=== PATIENT | male | born 1980 | race African-American/Black ===

== ENCOUNTER 2019-07-04 01:37 | Inpatient (IN) | payer MEDICAID ==
[~2019-07-04] VITALS: Ht 175.3 cm; Wt 86.2 kg
--- NOTE | 2019-07-04 01:58 | Emergency Room Report ---
History of Present Illness General Chief Complaint: Lower Extremity Injury Source: Patient Present Illness HPI Disclaimer: Please note that this report is being documented using DRAGON technology. This can lead to erroneous entry secondary to incorrect interpretation by the dictating instrument. HPI: 39-year-old male with history of DVTs presents for evaluation of leg pain and swelling. 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 He used to travel back and forth from [place] to [place] where his physicians were however he has lost touch with him is not refilled any medications. He cannot recall the anticoagulant he was taking in the past. Left leg began to swell a few months ago however became acutely painful and more swollen yesterday. He also noted a blistering over the medial aspect just above the medial malleolus that drained some clear fluid. Notes worsening edema. Pain with ambulation. Denies fevers, chills, chest pain, shortness of breath, palpitations, loss of consciousness. No prior history of PE. Denies other medical history or other complaints at this time. PMH: DVTs PSH: None Allergies: Denies Social Hx: Denies drug or alcohol abuse Allergies: Coded Allergies: No Known Allergies (Unverified , 07/04/19) Review of Systems All Other Systems: negative except mentioned in HPI Physical Exam Vital Signs Date Time Temp Pulse Resp B/P (MAP) Pulse Ox O2 Delivery O2 Flow Rate FiO2 07/04/19 01:42 98.2 94 19 120/77 (91) 97 Room Air General: Awake and alert, no acute distress HEENT: NC/AT. EOMI. Cardiovascular: RRR. S1 and S2 normal. No murmur appreciated Resp: Normal work of breathing. No cough, wheezing or crackles appreciated Abdomen: Abdomen is soft, nondistended. Nontender Skin: Intact. No abrasions, laceration or rash over the exposed skin. Shallow ulcerated lesion over the medial aspect of the left lower extremity approximately 5 cm above the medial malleolus. No active drainage, mild warmth surrounding it. No purulence, no bleeding. MSK: Normal tone and bulk. Moving all extremities. No obvious deformity. There is 2+ lower extremity pitting edema over the dorsum of the foot and tracking upward up to the mid christianson. Neuro: Awake and alert. Mentating appropriately. Medical Decision Making Diagnostic Impression: Primary Impression: DVT (deep venous thrombosis) Additional Impression: Lower limb ulcer ER Course 39-year-old male with history of multiple lower extremity DVTs no longer anticoagulate presents for evaluation of lower extremity pain and swelling. Differential includes was not limited to DVT, cellulitis, dependent edema, venous insufficiency, occult injury. Must rule out recurrent DVT given his prior history. Will obtain Doppler studies and check screening labs. He has no complaints of chest discomfort or respiratory complaints at this time. Arrives with stable vital signs. Laboratory Tests Test 07/04/19 01:58 White Blood Count 8.1 K/UL (4.8-10.8) Red Blood Count 5.01 M/UL (4.70-6.10) Hemoglobin 15.2 G/DL (14.2-18.0) Hematocrit 45.0 % (42.0-52.0) Mean Corpuscular Volume 90 FL (80-99) Mean Corpuscular Hemoglobin 30.4 PG (27.0-31.0) Mean Corpuscular Hemoglobin Concent 33.8 G/DL (32.0-36.0) Red Cell Distribution Width 11.3 % (11.6-14.8) L Platelet Count 217 K/UL (150-450) Mean Platelet Volume 6.2 FL (6.5-10.1) L Neutrophils (%) (Auto) 50.4 % (45.0-75.0) Lymphocytes (%) (Auto) 34.6 % (20.0-45.0) Monocytes (%) (Auto) 11.0 % (1.0-10.0) H Eosinophils (%) (Auto) 1.9 % (0.0-3.0) Basophils (%) (Auto) 2.2 % (0.0-2.0) H Prothrombin Time 11.0 SEC (9.30-11.50) Prothrombin Time INR 1.0 (0.9-1.1) PTT 26 SEC (23-33) Sodium Level 139 MMOL/L (136-145) Potassium Level 3.5 MMOL/L (3.5-5.1) Chloride Level 104 MMOL/L (98-107) Carbon Dioxide Level 29 MMOL/L (21-32) Anion Gap 6 mmol/L (5-15) Blood Urea Nitrogen 15 mg/dL (7-18) Creatinine 1.2 MG/DL (0.55-1.30) Estimate Glomerular Filtration Rate > 60 mL/min (>60) Glucose Level 147 MG/DL (74-106) H Calcium Level 9.0 MG/DL (8.5-10.1) Reevaluation Time: 03:31 Last Vital Signs Date Time Temp Pulse Resp B/P (MAP) Pulse Ox O2 Delivery O2 Flow Rate FiO2 07/04/19 01:42 98.2 94 19 120/77 (91) 97 Room Air Reevaluation Impression Duplex study showed extensive DVTs in the left lower extremity with almost complete occlusion and occlusion distal to the popliteal vein in the right lower extremity. Given the extensive clot burden and his lack of follow-up the patient will be admitted for anticoagulation. Will given Lovenox in the emergency department. He denies any chest pain, palpitation, shortness of breath or signs of pulmonary embolism. He is saturating 99% on room air with a normal heart rate. Do not see indication for further emergent imaging or labs at this time. He will be admitted to the medical service for further management. Disposition: ADMITTED INPATIENT Condition: Serious Referrals: NOT CHOSEN IPA/,REFERRING (PCP) Joseph Zepeda MD Jul 04, 2019 01:58
[2019-07-04 02:41] LABS: ANION GAP 6 mmol/L (5-15); BLOOD UREA NITROGEN 15 mg/dL (7-18); CARBON DIOXIDE 29 MMOL/L (21-32); CHLORIDE 104 MMOL/L (98-107); CREATININE 1.2 MG/DL (0.55-1.30); POTASSIUM 3.5 MMOL/L (3.5-5.1); SODIUM 139 MMOL/L (136-145)
[2019-07-04 02:54] LABS: BASOPHILS % (AUTO) 2.2 % (0.0-2.0); EOSINOPHILS % (AUTO) 1.9 % (0.0-3.0); HEMOGLOBIN 15.2 G/DL (14.2-18.0); LYMPHOCYTES % (AUTO) 34.6 % (20.0-45.0); MEAN CORPUSCULAR VOLUME 90 FL (80-99); NEUTROPHILS % (AUTO) 50.4 % (45.0-75.0); PLATELET COUNT 217 K/UL (150-450); RED BLOOD COUNT 5.01 M/UL (4.70-6.10); RED CELL DISTRIBUTION WIDTH 11.3 % (11.6-14.8); WHITE BLOOD COUNT 8.1 K/UL (4.8-10.8)
[2019-07-04] MEDS ORDERED: Enoxaparin 100mg Inj SUBQ ONE (03:15)
[2019-07-04] MEDS ORDERED: NKM (03:24)
--- NOTE | 2019-07-04 03:32 | Diagnostic Imaging Report ---
Indication:Leg pain and swelling Technique: Grayscale and duplex Doppler imaging of the veins in both lower extremities performed in real time utilizing compression and augmentation. Comparison: None Findings: Duplex Doppler interrogation of the veins in both lower extremity is performed from the common femoral vein to the popliteal vein. There is noncompressibility of the deep veins in the left leg from the common femoral vein, superficial femoral vein and popliteal vein extending into the calf veins. Findings consistent with acute DVT. On the right side, there is thrombosis of the popliteal vein and extending into the posterior tibial vein and other branches within the calf. The right common femoral vein is patent. The superficial femoral vein is patent. There is poor augmentation however. IMPRESSION: Acute bilateral DVT within the lower extremities as described above. Findings conveyed to emergency room staff. [facility] has communicated the preliminary results to the Emergency Department. Their findings are largely concordant with this report.
[2019-07-04] MEDS ORDERED: Morphine Sulfate 2mg/ml Inj(IV/IM USE ONLY) IVP PRN (04:00)
[2019-07-04] MEDS: Piperacillin/Tazobactam 3.375 GM in NS 110 ML IVPB SCH ×3 (07:32→22:16)
[2019-07-04 08:00] VITALS: BP 116/76
[2019-07-04] MEDS: Xarelto 15mg tab ORAL SCH ×2 (09:02→19:43)
--- NOTE | 2019-07-04 10:00 | History and Physical Report ---
DATE OF ADMISSION: 07/04/2019 CHIEF COMPLAINT: Left leg wound and DVT. HISTORY OF PRESENT ILLNESS: The patient is a 39-year-old male. He has a prior history of DVT. According to the patient, he was treated for a year with anticoagulation and states that it was stopped after he had no further DVT. He developed pain and swelling in the left leg as well as a wound. He presented to the emergency room. An ultrasound done in the ER showed again recurrent DVT. He was given a dose of Lovenox and is now admitted for further evaluation and care. PAST MEDICAL HISTORY: As above. PAST SURGICAL HISTORY: None. CURRENT MEDICATIONS: None. FAMILY HISTORY: None. SOCIAL HISTORY: The patient is a smoker. He drinks socially. No drugs. REVIEW OF SYSTEMS: Negative except for left leg pain. PHYSICAL EXAMINATION: VITAL SIGNS: Temperature 98 degrees, pulse 89, respirations 16, and blood pressure 125/80. GENERAL: The patient is well developed, in no apparent distress. HEART: Regular rate and rhythm. LUNGS: Clear. ABDOMEN: Soft, nontender, and nondistended. EXTREMITIES: Without clubbing or cyanosis. There is 1+ edema with hyperpigmentation changes of the left leg. There is a small 1 x 1 cm ulceration. There is no purulent discharge. LABORATORY DATA: Labs were reviewed. Imaging showed a DVT of right popliteal vein as well as a DVT in the left common femoral vein. ASSESSMENT: This is a 39-year-old male with a prior history of DVT admitted with complaints of recurrent DVT as well as a left leg wound. PLAN: IV antibiotics. CT scan of the leg to rule out deeper infection. Wound care. Bed rest. Start the patient on Xarelto. Aman Grissom M.D. DR: MADINA JOB#: [id number] CC:
[2019-07-04 12:00] VITALS: BP 127/72
[2019-07-04] MEDS: Vancomycin 1gm in D5W 275ml IVPB SCH ×2 (12:37→20:58)
--- NOTE | 2019-07-04 14:06 | Diagnostic Imaging Report ---
Indication: Skin ulceration in the area of the medial malleolus. Soft tissue swelling and pain Technique: Continuous helical imaging of the left tibia-fibula was performed in the transaxial plane. Coronal 2-D reformatted images were also generated. Study obtained in a Siemens Sensation [address] total DLP: 652 mGycm CTD/vol: 9.8 mGy Comparison: None Findings: There is a skin thickening and subcutaneous soft tissue stranding in the medial part of the tibia fibula near the medial malleolus. There is no abscess identified. The underlying tibia itself shows no evidence of periosteal reaction, focal lytic defect or other evidence of acute osteomyelitis by CT. The muscle compartments as visualized appear normal. No fluid collections are seen. Metallic foreign bodies noted in the posterior medial aspect of the distal left leg. The subtalar joint notable for some cystic subchondral lucencies which may be degenerative in nature. IMPRESSION: Soft tissue swelling demonstrated in the medial part of the ankle and distal leg. No abscess or CT evidence for acute osteomyelitis. The CT scanner at [facility] is accredited by the [employer] and the scans are performed using dose optimization techniques as appropriate to a performed exam including Automatic Exposure control.
[2019-07-04 16:33] VITALS: BP 119/69
[2019-07-04] MEDS: HYDROcodone/Acetamin 10/325 tab ORAL PRN ×2 (16:38→21:35)
[2019-07-04 20:00] VITALS: BP 137/95
[2019-07-05] VITALS: BP 113/65
[2019-07-05 04:00] VITALS: BP 124/68
[2019-07-05] MEDS: Piperacillin/Tazobactam 3.375 GM in NS 110 ML IVPB SCH (05:13)
[2019-07-05] MEDS ORDERED: CEPHALEXIN500 MG ORAL (07:15)
[2019-07-05] MEDS ORDERED: ZANTAC150 MG ORAL (07:15)
[2019-07-05] MEDS ORDERED: XARELTO15 MG ORAL (07:15)
[2019-07-05 08:00] VITALS: BP 137/50
[2019-07-05] MEDS: Xarelto 15mg tab ORAL SCH (08:47)
[2019-07-05] MEDS: Vancomycin 1gm in D5W 275ml IVPB SCH (10:00)
--- NOTE | 2019-07-06 02:15 | Discharge Summary ---
DATE OF ADMISSION: 07/04/2019 DATE OF DISCHARGE: 07/05/2019 ADMISSION DIAGNOSIS: Left leg DVT and cellulitis. DISCHARGE DIAGNOSIS: Left leg DVT and cellulitis. HOSPITAL COURSE: The patient is a pleasant male. He has a prior history of DVT that was treated several years ago. He developed left leg swelling, pain, as well as a wound on the left leg. He was admitted. He had a duplex. It did show a recurrent DVT. He was initially given a dose of Lovenox and then started on Xarelto. He was kept at bed rest. He had a CT scan of the leg that showed no evidence of osteomyelitis. On discharge, he was stable. He will be discharged with 3 weeks of Xarelto 15 mg b.i.d. and after that 20 mg daily. He has been started on Zantac for stress ulcer prophylaxis and he will follow up with his PMD in one week. DISCHARGE MEDICATIONS: Please see discharge medication list for discharge medications. DIET: Cardiac diet. ACTIVITIES: Ad-dean. FOLLOWUP: The patient will be followed by his PMD in one to two weeks. Aman Grissom M.D. DR: MARITZA JOB#: [id number] CC:
== END 2019-07-05 10:20 | disposition home or self-care (01) | DRG 197 ==
LOC: EMR 01:52 → 4E 03:35 → EDBEDREQ 03:55
DX: I82.431 Acute embolism and thrombosis of right popliteal vein (principal); I82.412 Acute embolism and thrombosis of left femoral vein; L03.116 Cellulitis of left lower limb; F17.200 Nicotine dependence, unspecified, uncomplicated; Z86.718 Personal history of other venous thrombosis and embolism
CPT/HCPCS: 36415; 80048; 85025; 85610; 85730; 93970; 96372; 99285